=== PATIENT | female | born 1955 | race African-American/Black ===

== ENCOUNTER 2019-09-02 20:47 | Emergency (ER) | payer OTHER ==
[2019-09-02 20:56] VITALS: TEMP 98.4; BMI 29.0
--- NOTE | 2019-09-02 21:35 | PDOC ---
History of Present Illness - General History Source: Patient Exam Limitations: No Limitations - History of Present Illness Initial Comments: 64 yo F with a hx of HTN an asthma presents to the emergency department with palpitations, chest tightness, and SOB. Per the patient, she states she took her albuterol inhaler with minimal relief. Per the patient, she states these symptoms began earlier today (greater than 6 hours ago). Per the patient, she states it is a tightness feeling with gradual onset located in the center sternum without radiation. Denies neck pain, back pain, and nausea. Denies the following: fevers, chills, headache, lightheadedness, dizziness, ears/nose/throat pain, abdominal pain, dysuria, hematuria, diarrhea, and leg pain. She endorses mild bilateral leg swelling that is at baseline. Endorses lying around more often than usual due to COVID quarantine rules. Allergies: NKDA <Suhas Lawrence - Last Filed: 09/05/19 17:49> <Ernie Nash - Last Filed: 09/16/19 17:13> - General Chief Complaint: Palpitations Stated Complaint: PALPITATIONS Time Seen by Provider: 09/02/19 21:03 Past History - Psycho Social/Smoking Cessation Hx Smoking History: Never smoked Have you smoked in the past 12 months: No Information on smoking cessation initiated: No Hx Alcohol Use: No Drug/Substance Use Hx: No <Suhas Lawrence - Last Filed: 09/05/19 17:49> <Ernie Nash - Last Filed: 09/16/19 17:13> - Past Medical History Allergies/Adverse Reactions: Allergies Allergy/AdvReac Type Severity Reaction Status Date / Time No Known Allergies Allergy Verified 09/02/19 21:12 Review of Systems - Review of Systems Able to Perform ROS?: Yes Is the patient limited Nam[place]ian proficient: No Constitutional: No: Chills, Diaphoresis, Fever, Weakness HEENTM: No: Eye Pain, Ear Pain, Nose Pain, Throat Pain Respiratory: Yes: Shortness of Breath. No: Cough, Hemoptysis Cardiac (ROS): Yes: Chest Pain, Palpitations, Chest Tightness. No: Lightheadedness ABD/GI: No: Constipated, Diarrhea, Nausea, Rectal Bleeding, Vomiting, Tarry Stools : No: Burning, Hematuria Musculoskeletal: No: Back Pain, Joint Pain, Neck Pain Integumentary: No: Bruising, Rash Neurological: No: Headache, Ataxia Psychiatric: No: Change in Appetite Endocrine: No: Unexplained Weight Loss Hematologic/Lymphatic: No: Anemia <Suhas Lawrence - Last Filed: 09/05/19 17:49> *Physical Exam - Vital Signs Last Vital Signs Temp Pulse Resp BP Pulse Ox 98.4 F 110 H 20 158/91 98 09/02/19 20:51 09/02/19 21:19 09/02/19 21:19 09/02/19 21:19 09/02/19 21:19 - Physical Exam General Appearance: Yes: Nourished, Appropriately Dressed. No: Apparent Distress, Intoxicated HEENT: positive: EOMI, MEHUL, Normal Voice, Symmetrical, Pharynx Normal, Hearing Grossly Normal. negative: Pale Conjunctivae, Scleral Icterus (R), Scleral Icterus (L), Muffled/Hoarse voice, Pharyngeal Erythema, Tonsillar Exudate, Tonsillar Erythema, Nasal Congestion, Rhinorrhea, Sinus Tenderness, Excessive drooling Neck: positive: Trachea midline, Supple. negative: Tender, Lymphadenopathy (R), Lymphadenopathy (L), Tender lateral, Tender midline Respiratory/Chest: positive: Wheezing (faint inspiratory wheezing). negative: Chest Tender, Lungs Clear, Normal Breath Sounds, Respiratory Distress, Accessory Muscle Use Cardiovascular: positive: Regular Rhythm, S1, S2, Tachycardia. negative: Systolic Murmur Gastrointestinal/Abdominal: positive: Normal Bowel Sounds, Flat, Soft. negative: Tender Lymphatic: negative: Adenopathy Musculoskeletal: positive: Normal Inspection. negative: CVA Tenderness, Vertebral Tenderness Extremity: positive: Normal Capillary Refill, Normal Inspection, Normal Range of Motion, Pedal Edema (trace bilaterally). negative: Tender Integumentary: positive: Normal Color, Dry, Warm. negative: Swelling, Ecchymosis Neurologic: positive: Fully Oriented, Alert, Normal Mood/Affect <Suhas Lawrence - Last Filed: 09/05/19 17:49> - Vital Signs Last Vital Signs Temp Pulse Resp BP Pulse Ox 98.4 F 89 20 147/88 99 09/02/19 20:51 09/03/19 01:33 09/03/19 01:33 09/03/19 01:33 09/03/19 01:33 <Ernie Nash - Last Filed: 09/16/19 17:13> ED Treatment Course - LABORATORY CBC & Chemistry Diagram: 09/02/19 21:45 09/02/19 21:45 <Suhas Lawrence - Last Filed: 09/05/19 17:49> - LABORATORY CBC & Chemistry Diagram: 09/02/19 21:45 09/02/19 21:45 - ADDITIONAL ORDERS Additional order review: 09/02/19 21:45 RBC 4.44 MCV 79.9 L MCHC 32.2 RDW 17.4 H MPV 8.3 Neutrophils % 66.0 Lymphocytes % 22.4 Monocytes % 10.0 Eosinophils % 0.9 Basophils % 0.7 - Medications Given in the ED: ED Medications Discontinued Medications Generic Name Dose Route Start Last Admin Trade Name Shaka PRN Reason Stop Dose Admin Acetaminophen 1,000 mg 09/02/19 21:36 09/02/19 21:59 Ofirmev Injection - IVPB 09/02/19 21:37 1,000 mg ONCE ONE Administration Lactated Ringer's 1,000 ml 09/02/19 23:45 09/03/19 00:09 Lactated Ringers Solution IV 09/02/19 23:46 1,000 ml ONCE ONE Administration <Ernie Nash - Last Filed: 09/16/19 17:13> Medical Decision Making - Medical Decision Making 64 yo F with a hx of HTN an asthma presents to the emergency department with palpitations, chest tightness, and SOB. Initial vitals: Initial Vital Signs Temp Pulse Resp BP Pulse Ox 98.4 F 116 H 18 171/90 H 98 09/02/19 20:51 09/02/19 20:51 09/02/19 20:51 09/02/19 20:51 09/02/19 20:51 Work up: patient presents to the emergency department with sob, chest tightness, and chest pain. ddx: PE vs asthma exacerbation vs ACS vs PNA vs pleuritis Will obtain CTA of the chest to rule out PE. Will obtain labs and US. Laboratory Tests 09/02/19 09/02/19 09/02/19 21:45 21:45 21:45 WBC 8.7 RBC 4.44 Hgb 11.4 Hct 35.5 MCV 79.9 L MCH 25.7 MCHC 32.2 RDW 17.4 H Plt Count 358 MPV 8.3 Absolute Neuts (auto) 5.8 Neutrophils % 66.0 Lymphocytes % 22.4 Monocytes % 10.0 Eosinophils % 0.9 Basophils % 0.7 Nucleated RBC % 0 PT with INR 12.80 INR 1.08 Sodium 140 Potassium 4.3 Chloride 108 H Carbon Dioxide 26 Anion Gap 6 L BUN 19.7 H Creatinine 0.7 Est GFR (CKD-EPI)AfAm 106.12 Est GFR (CKD-EPI)NonAf 91.56 Random Glucose 133 H Calcium 9.2 Magnesium 2.2 Total Bilirubin 0.3 AST 24 ALT 20 Alkaline Phosphatase 83 Creatine Kinase 138 Troponin I < 0.02 B-Natriuretic Peptide 40.7 Total Protein 7.7 Albumin 3.4 TSH 0.87 Labs within normal limits Patient's trop negative CTA of the chest negative for PE. Of note, there is a 5 mm nodule in the right lower lobe and 10 mm nodular density in the right breast. A copy of the CT rep ort was given to the patient and I advised her to follow up with her pMD within the next 1 week to have continuing work up. The EKG shows no ST elevations or depressions. The patient has QTc of 450 ms. Sinus tachycardia. Duplex US negative for DVT bilaterally The patient was re-evaluated. She had resolution of the chest tightness, pain, and SOB. Patient to be discharged with PMD follow up within 1 week after discharge. Patient was well at the time of discharge with resolution of tachycardia. <Suhas Lawrence - Last Filed: 09/05/19 17:49> Discharge - Discharge Information Problems reviewed: Yes - Admission No <Suhas Lawrence - Last Filed: 09/05/19 17:49> - Discharge Information Problems reviewed: Yes <Ernie Nash - Last Filed: 09/16/19 17:13> - Discharge Information Clinical Impression/Diagnosis: Palpitations Condition: Stable Disposition: HOME - Follow up/Referral Referrals: [facility] [place] Group] - Patient Discharge Instructions Patient Printed Discharge Instructions: DI for Arrhythmias, DI for Palpitations Additional Instructions: You have been evaluated in the emergency department for your palpitations. Your labs are within normal limits. Your imaging is negative for acute processes. Please follow up with your primary medical doctor within 72 hours after discharge for follow up care and management. Please return to the emergency department if you have worsening symptoms or new concerning features. Please stay hydrated. Thank you.
[2019-09-02] MEDS ORDERED: ACETAMINOPHEN 1000 MG/100 ML VIAL (NON FORMULARY) IVPB ONE (21:36)
[2019-09-02] MEDS ORDERED: ACETAMINOPHEN INJECTION 100 ML IVPB ONE (21:44)
[2019-09-02 22:18] LABS: BASO % 0.7 % (0-2.0); EOS % 0.9 % (0-4.5); HEMATOCRIT 35.5 % (32.4-45.2); HEMOGLOBIN 11.4 GM/dL (10.7-15.3); LYMPH % 22.4 % (8-40); MCH 25.7 pg (25.7-33.7); MCHC 32.2 g/dl (32.0-36.0); MEAN CELL VOLUME 79.9 fl (80-96); MEAN PLT VOLUME 8.3 fl (7.5-11.1); PLATELET COUNT 358 K/MM3 (134-434); RBC 4.44 M/mm3 (3.60-5.2); RDW 17.4 % (11.6-15.6); WHITE BLOOD COUNT 8.7 K/mm3 (4.0-10.0)
[2019-09-02 22:26] LABS: INR 1.08 (0.83-1.09); PROTHROMBIN TIME (PATIENT) 12.8 SEC (9.7-13.0)
[2019-09-02 23:10] LABS: ALBUMIN 3.4 g/dl (3.4-5.0); ALK PHOS 83 U/L (45-117); ANION GAP 6 MMOL/L (8-16); BILIRUBIN,TOTAL 0.3 mg/dL (0.2-1); BLOOD UREA NITROGEN 19.7 mg/dL (7-18); CALCIUM 9.2 mg/dL (8.5-10.1); CHLORIDE 108 mmol/L (98-107); CO2 26 mmol/L (21-32); CREATININE 0.7 mg/dL (0.55-1.3); GLUCOSE,RANDOM 133 mg/dL (74-106); MAGNESIUM 2.2 mg/dL (1.8-2.4); POTASSIUM 4.3 mmol/L (3.5-5.1); SGOT/AST 24 U/L (15-37); SGPT/ALT 20 U/L (13-61); SODIUM 140 mmol/L (136-145); TOT PROT 7.7 g/dl (6.4-8.2)
[2019-09-02 23:44] LABS: N-TERMINAL BNP 40.7 pg/ml (5-125)
[2019-09-02] MEDS ORDERED: LACTATED RINGERS SOLUTION 1000 ML INFUS.BAG IV ONE (23:45)
--- NOTE | 2019-09-03 01:25 | PDOC ---
Documentation entered by Felisha Alaniz SCRIBE, acting as scribe for Ernie Nash DO. Ernie Nash DO: This documentation has been prepared by the floresitaeCorbin Maria, SCRIBE, under my direction and personally reviewed by me in its entirety. I confirm that the documentation accurately reflects all work, treatment, procedures, and medical decision making performed by me. Attending Attestation - Resident Resident Name: Suhas Lawrence - ED Attending Attestation I have performed the following: I have examined & evaluated the patient, The case was reviewed & discussed with the resident, I agree w/resident's findings & plan, Exceptions are as noted - HPI HPI: 09/02/19 22:48 64 year old female with a pmh of asthma and HTN who presents to the ED with chest pain, palpitations and SOB. As per patient, she reports feeling chest tightness with mild shortness of breath, she took her albuterol pump with no relief. Denies any recent surgery. Denies recent travel. - Physicial Exam PE: 09/02/19 22:48 Constitutional: Awake, alert, oriented. No acute distress. Head: Normocephalic. Atraumatic Eyes: PERRL. EOMI. Conjunctivae are not pale. Neck: Supple. Full ROM. No lymphadenopathy. Cardiovascular: +tachycardia. S1, S2 regular. Distal pulses are 2+ and symmetric. Pulmonary/Chest:+Faint inspiratory wheezing. Neurological: Alert and oriented to person, place, and time. Cranial nerves II-XII are grossly intact. Normal speech. Strength is grossly symmetric. No sensory deficits. Psychiatric: Good eye contact. Normal interaction, affect and behavior. - Medical Decision Making 09/02/19 22:49 64 year old female with a pmh of asthma and HTN here for chest pain, palpitations and shortness of breath. -PE vs Asthma exacerbation -EKG -CT Chest -Cardiac profile -Chest x-ray -Ultrasound 09/03/19 00:[address] is negative for PE feels improved, voices no complaints stable for discharge. Discharge - Discharge Information Problems reviewed: Yes Clinical Impression/Diagnosis: Palpitations Condition: Stable Disposition: HOME - Follow up/Referral Referrals: [facility] [place] [facility] [place] [[place] Group] - Patient Discharge Instructions Patient Printed Discharge Instructions: DI for Arrhythmias, DI for Palpitations Additional Instructions: You have been evaluated in the emergency department for your palpitations. Your labs are within normal limits. Your imaging is negative for acute processes. Please follow up with your primary medical doctor within 72 hours after discharge for follow up care and management. Please return to the emergency department if you have worsening symptoms or new concerning features. Please stay hydrated. Thank you. - Post Discharge Activity
[2019-09-03 01:33] VITALS: BP 147/88; PULSE 89
--- NOTE | 2019-09-04 09:56 | EKG ---
Test Reason : Blood Pressure : / mmHG Vent. Rate : 112 BPM Atrial Rate : 112 BPM P-R Int : 174 ms QRS Dur : 088 ms QT Int : 330 ms P-R-T Axes : 052 064 047 degrees QTc Int : 450 ms SINUS TACHYCARDIA POSSIBLE LEFT ATRIAL ENLARGEMENT BORDERLINE ECG Confirmed by MD HARRIET, NEVILLE ([id number]) on 09/04/2019 9:55:41 AM Referred By: Confirmed By:NEVILLE LARIOS MD
== END 2019-09-03 01:32 | disposition home or self-care (01) ==
LOC: JER 20:47
PROC: 3E033GC Introduction of Other Therapeutic Substance into Peripheral Vein, Percutaneous Approach (ICD-10-PCS; principal; 2019-09-02)
DX: R00.2 Palpitations (principal)
CPT/HCPCS: 36415; 71045-TC-FY; 71275-TC; 80053; 82550; 83735; 83880; 84443; 84484; 85025; 85610; 93005; 93010; 93970-TC; 96374; 99285-25; J0131